=== PATIENT | female | born 1980 | race Caucasian/White ===

== ENCOUNTER 2017-11-10 17:43 | Inpatient (IN) | payer BC, MEDICAID ==
[~2017-11-10] VITALS: Ht 172.7 cm; Wt 82.6 kg
[~2017-11-10 17:43] MED LIST: ACET-1966 PO; PREN-127 PO
[2017-11-10] MEDS ORDERED: LR(*) 1000 ML BAG 1,000 ML IV PRN (17:45)
[2017-11-10 17:54] VITALS: BP 124/78; Ht 172.7 cm; Wt 82.6 kg
[2017-11-10] MEDS ORDERED: OXYTOCIN 30 UNIT/D5LR 500 ML 500 ML IV PRN (18:16)
[2017-11-10] MEDS ORDERED: FAMOTIDINE(*) 20MG/50ML PREMIX 50 ML IVPB PRN (18:16)
[2017-11-10] MEDS ORDERED: METOCLOPRAMIDE 10 MG/2 ML SDV IVP PRN (18:20)
[2017-11-10] MEDS ORDERED: LIDOCAINE/SOD BICARB 8.4% SYR SC PRN (18:20)
[2017-11-10] MEDS ORDERED: fentaNYL CITR 100 MCG/2 ML AMP IVP PRN (18:20)
[2017-11-10] MEDS ORDERED: cefOXitin/DEX(*) 2GM/50ML PREM 50 ML IVPB PRN (18:20)
[2017-11-10] MEDS ORDERED: LIDOCAINE 1% LOCAL 300 MG/30ML INJ PRN (18:20)
[2017-11-10 18:35] LABS: PLATELET COUNT, AUTOMATED 295 K/uL (150-450)
[2017-11-10] MEDS ORDERED: DLR(*) 1000 ML BAG 1,000 ML IV ONE (21:31)
[2017-11-10] MEDS ORDERED: CARBOPROST TROMETHAM 250MCG/ML IM ONLY ONE (22:35)
[2017-11-10] MEDS ORDERED: METHYLERGONOVINE MAL 0.2MG/ML ONE (22:36)
[2017-11-11] MEDS ORDERED: BUPIVACAINE 0.5% INJ 30ML VIAL EPI PRN (00:20)
[2017-11-11] MEDS ORDERED: ePHEDrine 25 MG/5 ML DISP.SYR IVP PRN (00:20)
[2017-11-11] MEDS ORDERED: FENTANYL/ROPIVACAINE 100 ML BAG EPI PRN (00:20)
[2017-11-11] MEDS ORDERED: LIDO/EPI 2% MPF 1:200,000 20ML EPI PRN (00:20)
[2017-11-11] MEDS ORDERED: BUPIVACAINE 0.25% MPF INJ EPI PRN (00:20)
[2017-11-11] MEDS ORDERED: fentaNYL CITR 100 MCG/2 ML AMP IT PRN (00:20)
[2017-11-11] MEDS ORDERED: LIDOCAINE/PF 2% 200MG/10ML AMP 200 MG/10 ML AMPUL EPI PRN (00:20)
[2017-11-11] MEDS ORDERED: EPIDURAL KEYS XX PRN (00:20)
[2017-11-11] MEDS ORDERED: HYDROmorphone HCL 2 MG TAB PO PRN (02:00)
[2017-11-11] MEDS ORDERED: HYDROCORTISONE 2.5% CR 30GM TB PR PRN (02:00)
[2017-11-11] MEDS ORDERED: LANOLIN OINT 7 GM TUBE TP PRN (02:00)
[2017-11-11] MEDS ORDERED: ACETAMINOPHEN 325 MG TAB PO PRN (02:00)
[2017-11-11] MEDS ORDERED: MAGNESIUM HYDROXIDE* 30ML UDCP PO PRN (02:00)
--- NOTE | 2017-11-11 02:31 | OB Delivery Note ---
Delivery Note Vaginal Delivery Type: Spont. Vaginal Delivery Delivery Date: Nov 11, 2017 Delivery Time: 01:08 Estimated Gestational Age(wks): 39 Delivery Anesthesia: Epidural Infant Sex: Female [place] Apgars: 1 Minute (8), 5 Minute (9) Repair Needed: Laceration, 2nd Degree Estimated Blood Loss: 500 Delivery Complications: Laceration Notes: TIROSETTE presented in active labor and proceeded naturally and normal pace with reassuring FHTs throughout. Pt lingered at nearly complete for a several hours trying different positions including hands and knees. Pushing spontaneous and effective. She then went to completely dilated at 0101 and I was notified as the head began to crown. Delivery occurred prior to my arrival at 0108 in straight OP position with ease. Placenta delivered spontaneously and intact. Repair with 2-0 chromic with excellent result and no complication. Fundus firm upon completion and bleeding scant. Copies to: CLOBY BARBER MD, TRAVIS MD Nov 11, 2017 02:30
--- NOTE | 2017-11-11 02:39 | History & Physical ---
History of Present Illness Age of Patient: 37 : 1 Para or TPAL: 0 EDC per LMP: Nov 18, 2017 Estimated Gestational Age: 39 Chief Complaint labor History of Present Illness Presented in active labor and dilated to 5 cm. complicated by AMA. Maternity 21 done and normal and declined MSAFP. GBS negative. Past Medical, Surgical, Family and Obstetric Histories reviewed. Please see ACOG chart. History Allergies: Coded Allergies: No Known Drug Allergies (Unverified , 11/09/17) Med Rec Home Meds Reported Medications Acetaminophen (TYLENOL) 325 Mg Tablet, 325 MG PO, TAB 11/09/17 Vits W-Ca,Fe,Fa(<1MG) ( VITAMINS) 1 Each Tablet, 1 EACH PO DAILY, TAB 11/09/17 Review of Systems Other All other systems reported Negative. Exam General Exam Vital Signs Vital Signs Date Time Temp Pulse Resp B/P (MAP) Pulse Ox O2 Delivery O2 Flow Rate FiO2 11/10/17 17:54 98.8 89 16 124/78 (93) 97 Room Air General Apperance: Alert/Awake/No Acute Distress Neuro: No Gross deficits Eyes: Normal Extraocular Movement & Vison Cardiovascular: Regular Rate and Rhythm Respiratory: No Respiratory Distress, Clear to Auscultation Abdomen: Soft, Non-Tender, Non-Distended, Gravid - Non-Tender Psychological: Alert & Oriented X3, Appropriate Mood & Affect Cervical Dialation: 5 Cervical Effacement (%): 80 Fetus Heart Tone Variabilty: Moderate FHT Accelerations: 15X15 FHT Category: I Medical Decision Making Data Points Result Diagram: 11/10/17 1820 VTE Prophylasis: Adult Pharmacological Contraindicati: Pt at Low Risk for VTE Mechanical Contraindications: Pt at Low Risk for VTE 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
[2017-11-11] MEDS: IBUPROFEN 800 MG TAB PO SCH ×3 (02:51→17:42)
[2017-11-11] MEDS: GLYCERIN/WITCH HAZEL LEAF 1 PK TOP PRN ×2 (02:52→21:16)
[2017-11-11] MEDS: BENZOCAINE 20% 60 ML BTL TP PRN ×2 (02:52→21:17)
[2017-11-11] MEDS ORDERED: LIDOCAINE 1% LOCAL 300 MG/30ML 30 ML ONE (04:40)
[2017-11-11 05:15] VITALS: BP 116/57
[2017-11-11 07:27] VITALS: BP 126/59
[2017-11-11] MEDS ORDERED: INFLUENZA VIRUS VAC 0.5 ML SYR IM ONLY ONE (09:00)
[2017-11-11] MEDS ORDERED: MEASLES,MUMP,RUBELLA VAC 0.5ML SUBQ ONE (09:00)
[2017-11-11] MEDS ORDERED: DIPHTH/TETANUS/ACEL. PERTUSSIS IM ONLY ONE (09:00)
[2017-11-11] MEDS: DOCUSATE CALCIUM 240 MG CAP PO SCH ×2 (09:56→21:16)
--- NOTE | 2017-11-11 11:57 | OB/GYN Progress Note ---
OB Subjective Progress Notes Subjective Doing well. Pain controlled although tender. Ambulating to BR well and voiding well. Lochia normal GI: NEG Nausea : Voiding Well Pain: Mild OB Objective Physical Exam Vital Signs Date Time Temp Pulse Resp B/P (MAP) Pulse Ox O2 Delivery O2 Flow Rate FiO2 11/11/17 07:27 98.4 86 16 126/59 (81) Room Air 11/10/17 17:54 97 Intake and Output 11/12/17 07:00 Output Total 900 ml Balance -900 ml Output Urine Total 900 ml # Voids 2 General Appearance: Alert/Awake/No Acute Distress Neurological: No Gross deficits Eyes: Normal Extraocular Movement & Vison Cardiovascular: Normal Rhythm & Peripheral Pulses, Regular Rate and Rhythm Respiratory: No Respiratory Distress, Clear to Auscultation Abdomen: Soft, Non-Tender, Non-Distended, Fundus Firm, Non-Tender Psychological: Alert & Oriented X3, Appropriate Mood & Affect Result Diagram: 11/10/17 1820 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
[2017-11-11] MEDS ORDERED: HYDR2TAB4 PO (11:59)
[2017-11-11] MEDS ORDERED: IBUP800T37 PO (11:59)
--- NOTE | 2017-11-11 12:00 | OB/GYN Discharge Summary ---
Discharge Summary Reason for Hosp/Final Diag: (1) Labor without complication (2) care and examination immediately after delivery Lates Vital Signs Vital Signs Date Time Temp Pulse Resp B/P (MAP) Pulse Ox O2 Delivery O2 Flow Rate FiO2 11/11/17 07:27 98.4 86 16 126/59 (81) Room Air 11/10/17 17:54 97 Weight (Pounds): 182 Result Diagram: 11/10/17 1820 Condition: Improved Discharge: Home, Self Skilled Nursing Meds Active Scripts Hydromorphone Hcl (HYDROMORPHONE HCL) 2 Mg Tablet, 2-4 MG PO Q4H Y for PAIN, # 20 TAB 0 Refills Prov:TOBIAS MORALES MD 11/11/17 Reported Medications Acetaminophen (TYLENOL) 325 Mg Tablet, 325 MG PO, TAB 11/09/17 Vits W-Ca,Fe,Fa(<1MG) ( VITAMINS) 1 Each Tablet, 1 EACH PO DAILY, TAB 11/09/17 Follow up Referrals: NUTRITION AIDE - In 6 Weeks @ [facility] with Tobias Morales Md Follow up with: Dr. Morales [phone] Follow up in: 6 wks PP or PO Discharge Diet: As Tolerates Discharge Activity: As Tolerates, No Heavy Lifting x 6 wks, No Heavy Lifting > 10lb, Pelvic Rest Copies to: TOBIAS MORALES MD, TRAVIS MD Nov 11, 2017 12:00
[2017-11-11 14:51] VITALS: BP 113/60
[2017-11-11 19:10] VITALS: BP 137/63
[2017-11-12 00:40] VITALS: BP 126/58
[2017-11-12] MEDS: IBUPROFEN 800 MG TAB PO SCH ×2 (00:44→09:55)
[2017-11-12 02:50] VITALS: BP 123/76
--- NOTE | 2017-11-12 08:37 | OB/GYN Progress Note ---
OB Subjective Progress Notes Subjective Doing well. No problems. Pain improving and bleeding light. Breast feeding issues but improving. Anemia noted today but not symptomatic. GI: NEG Nausea : Voiding Well OB Objective Physical Exam Vital Signs Date Time Temp Pulse Resp B/P (MAP) Pulse Ox O2 Delivery O2 Flow Rate FiO2 11/12/17 02:50 97.7 86 18 123/76 (92) Room Air 11/11/17 19:10 97 General Appearance: Alert/Awake/No Acute Distress Neurological: No Gross deficits Eyes: Normal Extraocular Movement & Vison Cardiovascular: Normal Rhythm & Peripheral Pulses, Regular Rate and Rhythm Respiratory: No Respiratory Distress, Clear to Auscultation Abdomen: Soft, Non-Tender, Non-Distended, Fundus Firm, Non-Tender Psychological: Alert & Oriented X3, Appropriate Mood & Affect Result Diagram: 11/12/17 0633 Assessment and Plan 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 Return to office in 6 weeks. Considering IUD. (3) Anemia due to acute blood loss Assessment & Plan: Iron replacement daily until seen again. COLBY BARBER MD Nov 12, 2017 08:37
[2017-11-12] MEDS ORDERED: FERR-53 PO (08:38)
[2017-11-12] MEDS ORDERED: FERROUS SULFATE 325 MG TAB PO ONE (09:00)
[2017-11-12 09:14] VITALS: BP 126/69
[2017-11-12] MEDS: DOCUSATE CALCIUM 240 MG CAP PO SCH (09:54)
== END 2017-11-12 16:15 | disposition home or self-care (01) | DRG 775 ==
LOC: OB 17:43
PROVIDERS: ADMIT Obstetrics & Gynecology; ATTEND Obstetrics & Gynecology
PROC: 10E0XZZ Delivery of Products of Conception, External Approach (ICD-10-PCS; principal; 2017-11-11)
PROC: 0KQM0ZZ Repair Perineum Muscle, Open Approach (ICD-10-PCS; 2017-11-11)
DX: O90.81 Anemia of the puerperium (principal); Z37.0 Single live birth; O70.1 Second degree perineal laceration during delivery; Z3A.39 39 weeks gestation of pregnancy
CPT/HCPCS: 36415; 85025; 85027; 86850; 86900; 86901; J2001; J7120